=== PATIENT | female | born 1955 | race Caucasian/White ===

== ENCOUNTER → 2016-10-24 | Outpatient (CLI) | payer BC ==
[~2016-10-24] MED LIST: ALBU1AER9 INH; GUAI100L2 PO; HYDR-3785 PO; IBUP-103 PO; ZPAK PO
--- NOTE | 2016-10-24 11:23 | DIAGNOSTIC IMAGING REPORT ---
CT SCAN OF THE CHEST WITHOUT IV CONTRAST CLINICAL HISTORY: Pulmonary nodule follow-up. COMPARISON STUDY: Chest CT dated 10/28/2015. Abdominal CT dated 11/05/2014. TECHNIQUE: CT scan of the thorax was performed from the thoracic inlet to the upper abdomen. Images are reviewed in the axial, sagittal, and coronal planes. IV contrast was not administered for this examination. CT DOSE: 400.85 mGycm FINDINGS: Thyroid: Imaged portions of the thyroid gland are normal in size and attenuation. Thoracic aorta: The thoracic aorta is normal in caliber and demonstrates standard 3-vessel arch anatomy. Heart: The heart is normal in size and without pericardial effusion. The pulmonary trunk is normal in caliber. Lungs and pleural spaces: There is a 4 mm left lower lobe pulmonary nodule seen on axial image #224. This is unchanged from 11/05/2014 and of doubtful significance. No new pulmonary nodules identified. There is no airspace consolidation or pleural effusion. The trachea and central airways are clear. Mediastinum: There is no mediastinal lymphadenopathy. Jessica: Not well assessed without IV contrast. Axillae: There is no axillary lymphadenopathy. Upper abdomen: There is a small hiatal hernia. Partially visualized upper abdominal viscera is otherwise within normal limits. Skeletal structures: No lytic or blastic bony lesions are seen. IMPRESSION: 1. A 4 mm left lower lobe pulmonary nodule is unchanged dating back to 11/05/2014. This is of doubtful significance given 2 years of stability. 2. No new or concerning pulmonary lesion is seen. 3. There is no airspace consolidation or pleural effusion. Electronically signed by: Enoc Smalls M.D. 10/24/2016 11:21 AM Dictated Date/Time: 10/24/2016 11:17 AM
== END | disposition home or self-care (01) ==
LOC: C.CTS 10:22
PROVIDERS: ATTEND Family Medicine
DX: R91.1 Solitary pulmonary nodule (principal)

== ENCOUNTER → 2017-04-26 | Outpatient (CLI) | payer BC ==
[2017-04-26 11:12] LABS: BASO % 0.5 %; BASO ABS # 0.03 K/uL (0-0.2); COMPLETE YES; EOS % 2.4 %; HEMATOCRIT 42.2 % (37-47); LYMPH % 32.1 %; MEAN CELL VOLUME 86.8 fL (80-100); MEAN CORPUSCULAR HGB CONC 33.4 g/dl (32-36); MEAN PLATELET VOLUME 10.5 fL (7.4-10.4); MONO % 4.7 %; NEUT % 60.3 %; PLATELET COUNT 317 K/uL (130-400); RED BLOOD COUNT 4.86 M/uL (4.2-5.4); WHITE BLOOD COUNT 5.92 K/uL (4.8-10.8)
[2017-04-26 11:15] LABS: URINE APPEARANCE TURBID (CLEAR); URINE BILIRUBIN NEG (NEG); URINE COLOR YELLOW; URINE NITRITE NEG (NEG); URINE SPECIFIC GRAVITY 1.026 (1.000-1.030); UROBILINOGEN NEG (NEG)
[2017-04-26 11:16] LABS: MANUAL MICROSCOPIC REQUIRED? NO; REVIEW REQ? YES
[2017-04-26 11:41] LABS: ALT/SGPT 43 U/L (12-78); AST/SGOT 20 U/L (15-37); BLOOD UREA NITROGEN 18 mg/dl (7-18); BUN/CREATININE RATIO 23.3 (10-20); CARBON DIOXIDE 27 mmol/L (21-32); CHLORIDE 108 mmol/L (98-107); CREATININE 0.79 mg/dl (0.60-1.20); GLUCOSE 105 mg/dl (70-99); POTASSIUM 3.8 mmol/L (3.5-5.1); SODIUM 142 mmol/L (136-145)
[2017-04-26 11:43] LABS: ALB/GLOB RATIO 0.8 (0.9-2); ALKALINE PHOSPHATASE 97 U/L (45-117)
== END | disposition home or self-care (01) ==
LOC: C.LABBC 07:32
PROVIDERS: ATTEND Nurse Practitioner
DX: R10.9 Unspecified abdominal pain (principal)

== ENCOUNTER → 2017-05-03 | Outpatient (CLI) | payer BC ==
[~2017-05-03] MED LIST changes: +OPTIRAY 320 IV PRN
--- NOTE | 2017-05-03 09:52 | DIAGNOSTIC IMAGING REPORT ---
ABD/PELVIS COMBO CLINICAL HISTORY: 61 years-old Female presenting with right flank pain, chronic. TECHNIQUE: Multidetector CT of the abdomen and pelvis was performed before and after the administration of intravenous contrast. IV contrast: 119 mL of Optiray 320. A dose lowering technique was used consistent with the principles of ALARA (as low as reasonably achievable). COMPARISON: CT from 2015. CT DOSE: The estimated cumulative dose is 2035.07 mGy.cm. FINDINGS: Scale Tester topogram: Unremarkable. Lung bases: Previously noted left lower lobe nodule now measures 4 mm, previously 4 mm (series 3 image 44). Normal heart size. No pericardial or pleural effusion. Liver: Normal morphology. No liver lesion. Patent hepatic vasculature. Biliary: No intrahepatic or extrahepatic biliary ductal dilatation. Normal gallbladder. Pancreas: Normal. Spleen: Normal. Adrenal glands: Normal. Kidneys and ureters: Normal. No nephrolithiasis. No hydronephrosis. Normal ureters. Gastrointestinal tract: Inspissated material in the distal small bowel may suggest delayed transit. Normal appendix. No bowel obstruction. Peritoneal cavity: Minimal infiltration of the upper abdominal mesentery. No free fluid or gas. Bladder: Normal. Pelvic organs: Uterus and ovaries normal. Vasculature: Aorta and IVC patent and normal in caliber. Lymph nodes: Few prominent upper abdominal mesenteric lymph nodes, which are not pathologically enlarged. Abdominal wall: Normal. Musculoskeletal: Minimal focal degenerative change at L5-S1. IMPRESSION: 1. Interval passage of the previously noted obstructing distal left ureteral calculus. No nephrolithiasis or hydroureteronephrosis. 2. Stable left lower lobe 4 mm pulmonary nodule. Follow-up as per [place] [employer] 2017 recommendations below. Please refer to below summary of Fleischner criteria recommendations for follow-up of incidental CT nodules (Kwasi Xavier, Guidelines for management of small pulmonary nodules detected on CT scans: A statement from the Fleischner Society, Radiology 237: [phone].) SOLID NODULES Solitary nodule size: <6 mm * Low risk patients: no follow-up needed * high risk patients: optional CT at 12 months Solitary nodule size: 6-8 mm * Low risk patients: follow-up at 6-12 months, then consider further follow-up at 18-24 months * high risk patients: initial follow-up CT at 6-12 months and then at 18-24 months if no change Solitary nodule size: >8 mm * either low or high risk patients - consider follow-up CT at 3 months, and/or CT-PET, and/or biopsy Multiple nodules size: <6 mm * Low risk patients: no routine follow-up * high risk patients: optional CT at 12 months Multiple nodules size: 6-8 mm * Low risk patients: follow-up at 3-6 months, then consider further follow-up at 18-24 months * high risk patients: follow-up at 3-6 months, then at 18-24 months if no change Multiple nodules size: >8 mm * Low risk patients: follow-up at 3-6 months, then consider further follow-up at 18-24 months * high risk patients: follow-up at 3-6 months, then at 18-24 months if no change Note: newly detected indeterminate nodule in persons 35 years of age or older. * Low risk patients: minimal or absent history of smoking and/or other known risk factors * high risk patients: history of smoking or of other known risk factors (e.g. first degree relative with lung cancer, or exposure to asbestos, radon, uranium) * if a nodule up to 8 mm is partly solid or is ground glass further follow-up is required after 24 months to exclude possible slow growing adenocarcinoma (RAD) SUBSOLID NODULES Solitary pure ground-glass nodule * nodule size <6 mm - no CT follow-up required * nodule size >=6 mm - follow-up CT at 6-12 months, then every 2 years until 5 years Solitary part-solid nodule * nodule size <6 mm - no CT follow-up required * nodule size >=6 mm - follow-up CT at 3-6 months. If unchanged, and solid component remains <6 mm, then annual follow-up for 5 years Multiple subsolid nodules * nodule size <6 mm - follow-up CT at 3-6 months, consider further follow-up at 2 and 4 years if stable * nodule size >=6 mm - follow-up CT at 3-6 months, subsequent management based on the most suspicious nodule(s) Electronically signed by: Kostas Daniels M.D. 05/03/2017 9:51 AM Dictated Date/Time: 05/03/2017 9:35 AM
== END | disposition home or self-care (01) ==
LOC: C.CTS 09:10
PROVIDERS: ATTEND Nurse Practitioner
DX: R10.9 Unspecified abdominal pain (principal); R91.1 Solitary pulmonary nodule

== ENCOUNTER → 2017-05-29 | Outpatient (CLI) | payer BC ==
[~2017-05-29] MED LIST changes: -OPTIRAY 320 IV PRN
--- NOTE | 2017-05-29 09:53 | DIAGNOSTIC IMAGING REPORT ---
KUB CLINICAL HISTORY: Nephrolithiasis. FINDINGS: An AP supine abdominal radiograph is correlated with abdominal CT dated 05/03/2017. There is a nonobstructed abdominal bowel gas pattern noting colonic fecal retention. There is no radiographic evidence of nephrolithiasis. The skeletal structures are osteopenic. Mild degenerative changes noted in the lumbar spine. IMPRESSION: 1. There is no radiographic evidence of nephrolithiasis. 2. Constipation. Electronically signed by: Enoc Smalls M.D. 05/29/2017 9:51 AM Dictated Date/Time: 05/29/2017 9:50 AM
== END | disposition home or self-care (01) ==
LOC: C.RADBC 09:38
PROVIDERS: ATTEND Nurse Practitioner Family
DX: N20.0 Calculus of kidney (principal); K59.00 Constipation, unspecified

== ENCOUNTER → 2017-07-25 | Outpatient (CLI) | payer BC ==
[2017-07-25 11:23] LABS: CHOLESTEROL/HDL RATIO 3.3
== END | disposition home or self-care (01) ==
LOC: C.LABBC 07:42
PROVIDERS: ATTEND Family Medicine
DX: E78.5 Hyperlipidemia, unspecified (principal); E66.9 Obesity, unspecified

== ENCOUNTER → 2017-11-09 | Outpatient (CLI) | payer OTHER ==
[2017-11-09 13:46] LABS: BLOOD UREA NITROGEN 19 mg/dl (7-18); CREATININE 0.83 mg/dl (0.60-1.20)
== END | disposition home or self-care (01) ==
LOC: C.LABBC 09:52
PROVIDERS: ATTEND Psychiatry & Neurology Neurology
DX: Z00.00 Encounter for general adult medical examination without abnormal findings (principal)

== ENCOUNTER → 2017-11-13 | Outpatient (CLI) | payer OTHER ==
[~2017-11-13] MED LIST changes: +GADAVIST IV PRN
--- NOTE | 2017-11-13 08:19 | DIAGNOSTIC IMAGING REPORT ---
MRI OF THE BRAIN COMBO TRIGEMINAL NERVE PROTOCOL CLINICAL HISTORY: Left facial pain. COMPARISON STUDY: No priors. TECHNIQUE: MRI of the brain was performed utilizing various T1 and T2-weighted sequences in the axial, sagittal, and coronal planes. Contrast-enhanced sequences were acquired following the administration of 9 cc of Gadavist. Additional high-resolution imaging was performed through the skull base both pre and post contrast to assess the trigeminal nerves. FINDINGS: Brain parenchyma: There is minimal subcortical and periventricular microangiopathic change. There is no hemorrhage or mass effect. There is no restricted diffusion to suggest acute ischemia. No enhancing mass lesion is identified on the postcontrast images. Tony-white matter differentiation is preserved. No extra-axial fluid collection is seen. The cerebellar tonsils are normal in configuration. Ventricles, sulci, and cisterns: Normal in configuration. Trigeminal nerves: The trigeminal nerves are normal and symmetric. No abnormal enhancement is suggested on the postcontrast images. Pituitary and sella: Unremarkable. Intracranial vasculature: Normal flow voids are maintained at the skull base. Orbits: The bony orbits are grossly intact. Orbital contents are normal in appearance. Sinuses and mastoids: Clear. Calvarium: Unremarkable. Cervical cord: Partially visualized cervical spinal cord is normal in morphology and signal intensity. IMPRESSION: 1. No acute intracranial abnormality. 2. Unremarkable MRI assessment of the trigeminal nerves. Electronically signed by: Enoc Smalls M.D. 11/13/2017 8:17 AM Dictated Date/Time: 11/13/2017 8:12 AM
== END | disposition home or self-care (01) ==
LOC: C.MRIBC 06:57
PROVIDERS: ATTEND Psychiatry & Neurology Neurology
DX: G50.0 Trigeminal neuralgia (principal)

== ENCOUNTER 2017-12-27 17:32 | Emergency (ER) | payer OTHER ==
[~2017-12-27] VITALS: Ht 165.1 cm; Wt 94.6 kg
[~2017-12-27 17:32] MED LIST changes: -GADAVIST IV PRN
[2017-12-27 17:42] VITALS: TEMP 36.7; Ht 165.1 cm; Wt 94.6 kg
[2017-12-27] MEDS ORDERED: NITROGLYCERIN 0.4 MG SL PER TAB CHARGE SL PRN (19:00)
[2017-12-27 19:10] LABS: BASO % 0.3 %; BASO ABS # 0.03 K/uL (0-0.2); EOS % 2.6 %; EOS ABS # 0.24 K/uL (0-0.5); HEMATOCRIT 41.8 % (37-47); HEMOGLOBIN 14.6 g/dL (12.0-16.0); IG# 0.02 K/uL (0.00-0.02); LYMPH % 25.6 %; LYMPH ABS # 2.32 K/uL (1.2-3.4); MEAN CELL VOLUME 86.4 fL (80-100); MEAN CORPUSCULAR HEMOGLOBIN 30.2 pg (25-34); MEAN CORPUSCULAR HGB CONC 34.9 g/dl (32-36); MEAN PLATELET VOLUME 10.2 fL (7.4-10.4); MONO % 5.2 %; MONO ABS # 0.47 K/uL (0.11-0.59); NEUT % 66.1 %; NEUT ABS # 5.99 K/uL (1.4-6.5); PLATELET COUNT 298 K/uL (130-400); RED CELL DISTRIBUTION WIDTH CV 13.5 % (11.5-14.5); WHITE BLOOD COUNT 9.07 K/uL (4.8-10.8)
[2017-12-27 19:33] LABS: BLOOD UREA NITROGEN 17 mg/dl (7-18); CALCIUM 9.3 mg/dl (8.5-10.1); CARBON DIOXIDE 27 mmol/L (21-32); CREATININE 0.97 mg/dl (0.60-1.20); GLUCOSE 95 mg/dl (70-99); POTASSIUM 3.9 mmol/L (3.5-5.1); SODIUM 138 mmol/L (136-145)
[2017-12-27 19:37] LABS: CKMB 0.9 ng/ml (0.5-3.6)
--- NOTE | 2017-12-27 19:56 | DIAGNOSTIC IMAGING REPORT ---
SINGLE VIEW CHEST CLINICAL HISTORY: Atypical chest pain. FINDINGS: An AP, portable, upright chest radiograph is compared to study dated 11/05/2014 and correlated with chest CT dated 10/24/2016. The examination is degraded by portable technique, apical lordotic positioning, and patient rotation. The cardiomediastinal silhouette is normal for projection. Chronic interstitial thickening is similar to previous. There is mild chronic elevation of the right hemidiaphragm. No airspace consolidation or pleural effusion is identified. No pneumothorax is seen. The skeletal structures are osteopenic. The bony thorax is grossly intact. IMPRESSION: No acute cardiopulmonary abnormality. Electronically signed by: Enoc Smalls M.D. 12/27/2017 7:55 PM Dictated Date/Time: 12/27/2017 7:54 PM
[2017-12-27 23:00] VITALS: BP 144/92; PULSE 80; O2SAT 98
--- NOTE | 2017-12-28 00:29 | EMERGENCY ROOM VISIT NOTE ---
History Report prepared by Cirilo: Oscar Pate Under the Supervision of: Dr. Reji Ann D.O. First contact with patient: 18:43 Chief Complaint: CHEST PAIN Stated Complaint: CHEST PAIN History of Present Illness The patient is a 62 year old female who presents to the Emergency Room with complaints of coming and going chest tightness starting around 1500 today. She states that nothing makes the pain better or worse. The patient states that last night she had a tickle in her throat, and she had a little chest pressure, and then went to bed. She states that this morning she woke up with no voice, and she was coughing up mucous, though she was not vomiting. The patient is denying any arm pain, jaw pain, and shortness of breath. She states that she has a history of pneumonia a few years ago, so she went to the walk in clinic. The patient states that yesterday she worked out, and she states that she thought that the pain was from working out. She additionally notes that she has been having some neck pain, though she states that she is nervous and thinks it could be tension. Patient denies diabetes, hypertension, hyperlipidemia, and CAD. Denies smoking. No family history of heart disease. Source of History: patient Onset: 1500 Position: chest Quality: other (tightness) Timing: other (coming and going) Modifying Factors (Worsening): other (nothing) Associated Symptoms: + cough, + neck pain, No SOB, No vomiting Review of Systems See HPI for pertinent positives & negatives. A total of 10 systems reviewed and were otherwise negative. Past Medical & Surgical Surgical Problems: (1) Previous section Family History Cancer Gallbladder disease Heart disease Lung disease Social History Smoking Status: Never Smoker Alcohol Use: occasionally Marital Status: Housing Status: lives with significant other Occupation Status: unemployed Current/Historical Medications Scheduled Azithromycin (Azithromycin), 500 MG PO DAILY Scheduled PRN Albuterol Sulfate (Proair Hfa), 1 PUFF INH for SOB/Wheezing Guaifenesin-Codeine (Iophen C-Nr), 1 TBS PO for Cough Hydroxyzine Hcl (Atarax), 100 MG PO for Anxiety/Agitation Ibuprofen Tab (Advil), 400 MG PO for Pain Allergies Coded Allergies: No Known Allergies (Unverified , NONE, 11/05/14) Physical Exam Vital Signs Date Time Temp Pulse Resp B/P (MAP) Pulse Ox O2 Delivery O2 Flow Rate FiO2 12/27/17 23:00 80 16 144/92 98 12/27/17 21:07 80 16 144/92 98 Room Air 12/27/17 19:54 80 16 142/92 97 Room Air 12/27/17 19:01 93 Room Air 12/27/17 18:59 86 12/27/17 17:42 36.7 88 18 138/96 98 Room Air Physical Exam GENERAL: Sitting up in bed, anxious, no acute distress, non-toxic. EYE EXAM: normal conjunctiva. OROPHARYNX: no exudate, no erythema, lips, buccal mucosa, and tongue normal and mucous membranes are moist NECK: supple, no nuchal rigidity, no adenopathy, non-tender LUNGS: Clear to auscultation. Normal chest wall mechanics HEART: no murmurs, S1 normal and S2 normal ABDOMEN: abdomen soft, non-tender, normo-active bowel sounds, no masses, no rebound or guarding. BACK: Back is symmetrical on inspection and there is no deformity, no midline tenderness, no CVA tenderness. SKIN: no rashes and no bruising UPPER EXTREMITIES: upper extremities are grossly normal. LOWER EXTREMITIES: No pitting edema. Calves are equal bilaterally. NEURO EXAM: Normal sensorium, cranial nerves II-XII grossly intact, normal speech, no gross weakness of arms, no gross weakness of legs. Medical Decision & Procedures ER Provider Diagnostic Interpretation: Radiology results as stated below per my review and the radiologist's interpretation: SINGLE VIEW CHEST CLINICAL HISTORY: Atypical chest pain. FINDINGS: An AP, portable, upright chest radiograph is compared to study dated 11/05/2014 and correlated with chest CT dated 10/24/2016. The examination is degraded by portable technique, apical lordotic positioning, and patient rotation. The cardiomediastinal silhouette is normal for projection. Chronic interstitial thickening is similar to previous. There is mild chronic elevation of the right hemidiaphragm. No airspace consolidation or pleural effusion is identified. No pneumothorax is seen. The skeletal structures are osteopenic. The bony thorax is grossly intact. IMPRESSION: No acute cardiopulmonary abnormality. Electronically signed by: Enoc Smalls M.D. 12/27/2017 7:55 PM Dictated Date/Time: 12/27/2017 7:54 PM Laboratory Results 12/27/17 18:50 Red Blood Count 4.84, Mean Corpuscular Volume 86.4, Mean Corpuscular Hemoglobin 30.2, Mean Corpuscular Hemoglobin Concent 34.9, Mean Platelet Volume 10.2, Neutrophils (%) (Auto) 66.1, Lymphocytes (%) (Auto) 25.6, Monocytes (%) (Auto) 5.2, Eosinophils (%) (Auto) 2.6, Basophils (%) (Auto) 0.3, Neutrophils # (Auto) 5.99, Lymphocytes # (Auto) 2.32, Monocytes # (Auto) 0.47, Eosinophils # (Auto) 0.24, Basophils # (Auto) 0.03 12/27/17 18:50 Test 12/27/17 18:50 12/27/17 21:59 White Blood Count 9.07 K/uL (4.8-10.8) Red Blood Count 4.84 M/uL (4.2-5.4) Hemoglobin 14.6 g/dL (12.0-16.0) Hematocrit 41.8 % (37-47) Mean Corpuscular Volume 86.4 fL (80-100) Mean Corpuscular Hemoglobin 30.2 pg (25-34) Mean Corpuscular Hemoglobin Concent 34.9 g/dl (32-36) Platelet Count 298 K/uL (130-400) Mean Platelet Volume 10.2 fL (7.4-10.4) Neutrophils (%) (Auto) 66.1 % Lymphocytes (%) (Auto) 25.6 % Monocytes (%) (Auto) 5.2 % Eosinophils (%) (Auto) 2.6 % Basophils (%) (Auto) 0.3 % Neutrophils # (Auto) 5.99 K/uL (1.4-6.5) Lymphocytes # (Auto) 2.32 K/uL (1.2-3.4) Monocytes # (Auto) 0.47 K/uL (0.11-0.59) Eosinophils # (Auto) 0.24 K/uL (0-0.5) Basophils # (Auto) 0.03 K/uL (0-0.2) RDW Standard Deviation 43.0 fL (36.4-46.3) RDW Coefficient of Variation 13.5 % (11.5-14.5) Immature Granulocyte % (Auto) 0.2 % Immature Granulocyte # (Auto) 0.02 K/uL (0.00-0.02) Anion Gap 7.0 mmol/L (3-11) Est Creatinine Clear Calc Drug Dose 67.5 ml/min Estimated GFR () 72.0 Estimated GFR (Non- 62.2 BUN/Creatinine Ratio 17.4 (10-20) Calcium Level 9.3 mg/dl (8.5-10.1) Total Creatine Kinase 81 U/L (26-192) Creatine Kinase MB 0.9 ng/ml (0.5-3.6) Creatine Kinase MB Ratio 1.1 (0-3.0) Troponin I < 0.015 ng/ml (0-0.045) Laboratory results per my review. ECG Per My Interpretation Indication: chest pain Rate (beats per minute): 85 Rhythm: sinus rhythm Findings: nonspecific-ST abn (High lateral leads), PVC, left axis deviation, other (LVH) Comparison ECG Date: no prior available ED Course ED COURSE: Vital signs were reviewed and showed situational hypertension The patients medical record was reviewed The above diagnostic studies were performed and reviewed. ED treatments and interventions as stated above. 1845: The patient was evaluated in room B12. A complete history and physical examination was performed. 1899: Nitrostat 0.4mg SL 2125: I discussed the patient's case with Dr. Elizondo - Cardiology, and he is going to review the patient's EKGs 2144: He reviewed them, and he says that there is nothing to worry about. 2241: Upon reevaluation, the patient is doing well, and she is ready to go home. I discussed my findings with the patient and she understands and agrees with the treatment plan. Based on the patients age, coexisting illnesses, exam and lab findings the decision to treat as an outpatient was made. The patient remained stable while under my care. The patient appeared well at the time of discharge. Medical Decision Differential diagnoses includes but is not limited to acute coronary syndrome, myocardial infarction, pericarditis, pulmonary embolus, aortic dissection, pneumonia, pneumothorax, musculoskeletal, shingles, esophageal. Patient is a 62-year-old female who presents the ER for cough and sore throat which started last night and has progressively worsened into this morning. She no longer has a voice. She notes that last night she started to have intermittent chest pressure which has been intermittent throughout today. No exacerbating or remitting factors. She was seen by PCP and was referred over here for blood work/2 sets of troponins. EKG was reviewed in comparison to previous. It does show some high lateral ST depressions which I favor were secondary to LVH. 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 Based on her symptoms give her nitro without improvement. I did recommend admission due to her age and symptoms. She declined. She was willing after a prolonged conversation to stay for repeat troponin. Her repeat troponin came back negative. She prefers to follow-up as an outpatient. With the negative troponins and cardiology's review of EKG does seem reasonable to have her follow -up tomorrow with PCP as I do favor this is likely secondary to her laryngitis. Risks and benefits were explained at length. Patient was discharged to follow -up with PCP as an outpatient tomorrow. Discussed with Pt concerning signs and symptoms to watch out for. Pt was instructed to follow up with their PCP and discussed with the patient their option to return to the ED at anytime for persistent or worsening symptoms. The appropriate anticipatory guidance and out- patient management, including indications for return to the emergency department , were explained at length to the patient and understood. Medication Reconcilliation Current Medication List: was personally reviewed by me Blood Pressure Screening Patient's blood pressure: Elevated blood pressure Blood pressure disposition: Elevated BP felt to be situational Consults Time Called: 2122 Consulting Physician: Dr. Caro Childers Returned Call: 2125 I discussed the patient's case with Dr. Caro Childers, and he is going to review the patient's EKGs He reviewed them, and he says that there is nothing to worry about. Impression Primary Impression: Bronchitis Additional Impression: Chest tightness Scribe Attestation The scribe's documentation has been prepared under my direction and personally reviewed by me in its entirety. I confirm that the note above accurately reflects all work, treatment, procedures, and medical decision making performed by me. Departure Information Dispostion Home / Self-Care Referrals Stacy Martni MD (PCP) Forms Call Back Authorization, HOME CARE DOCUMENTATION FORM, IMPORTANT VISIT INFORMATION Patient Instructions Chest Pain - [facility], ED Laryngitis, My [facility] Additional Instructions Please follow up with your primary care doctor with in the next 24 hours. Any worsening of your symptoms, please return to the ED immediately. This includes any fevers greater than 100.4, worsening pain, chest pain, shortness breath, persistent nausea, vomiting, unable to eat or drink, or any other concerning signs or symptoms from your standpoint. Again please follow-up with your primary care doctor in 24 hours for your intermittent chest pain in combination with your laryngitis. You were found to have a blood pressure greater than 120 systolic over 90 diastolic. Due to the new Medicare guidelines, we are now recommending that you follow up with your primary care doctor in regards to this elevated blood pressure. Problem Qualifiers
== END 2017-12-27 23:00 | disposition home or self-care (01) ==
LOC: C.EDB 17:34
DX: J40 Bronchitis, not specified as acute or chronic (principal); R07.9 Chest pain, unspecified